=== PATIENT | male | born 1955 | race Caucasian/White ===

== ENCOUNTER 2016-07-17 12:50 | Inpatient (IN) | payer MEDICARE, SELFPAY ==
--- NOTE | ~2016-07-17 | MR134 ---
[facility] A Service of [facility] & [facility] RADIOLOGY TEXT RESULTS PATIENT: ROSE ORTA LOCATION: [facility] 326-01 : 56 UNIT #: [id number] AGE: [address]: Nery Garcia MD SEX: M ORDER DR: [id number] [facility] [address] [place], [place] [address] [id number] I MR#: [id number] Acc #: [id number] NAME: ROSE ORTA : 1955 SEX: M STUDY DATE/TIME: 07/19/2016 17:17 UNIT: [address] ROOM: [facility] STUDY DESCRIPTION: MR MRA Neck Wo Contrast Attending Physician: Nery Garcia M.D. Ordering Physician: Guanakito Miranda M.D. Primary Care Physician: Nery Garcia M.D. MRI CENTER REPORT This report is preliminary unless electronic signature is present. EXAM MRI neck HISTORY 07/10/2016 past hit head on a grandfather clock, hurt right knee (replaced), whole body sore 6 weeks. No more dizzy spells. No history cancer. Dizziness, syncope, many problems. TECHNIQUE Two-dimensional uhtl-et-gvlsac imaging performed through the cervical carotid and vertebral arteries. The patient then underwent contrast-enhanced MRA of the neck with intravenous administration of 18 mL gadolinium based contrast material. Please see dedicated MRA and MRI brain for discussion of intracranial findings. FINDINGS On this examination, the visualized superior mediastinum is grossly unremarkable. Examination was not tailored for assessment of nonvascular cervical soft tissues. No gross suspicious soft tissue asymmetry is seen and there is no enhancing cervical soft tissue mass lesion. Examination was not tailored for assessment of the cervical spine. Bottom Scrubber images suggest potentially significant posterior disc osteophyte complexes at the C3-C4, C6-C7 levels. Correlate clinically and if felt warranted consider assessment with dedicated cervical spine MRI or CT. The visualized aortic arch on the post-gadolinium imaging appears of normal caliber. The great vessel origins are patent with a combined origin of the innominate artery and left common carotid artery. The bilateral subclavian arteries are patent. The bilateral vertebral arteries are patent. On the contrast-enhanced MRA, there is probably mild to moderate disease at the origin of the right vertebral artery. Some of the appearance could be artifactual. Best further evaluated with CT angiography or standard catheter angiography. Thereafter the right [facility] A Service of [facility] RADIOLOGY TEXT RESULTS PATIENT: ROSE ORTA LOCATION: [facility] 326-01 : 57 UNIT #: [id number] AGE: [address]: Nery Garcia MD SEX: M ORDER DR: vertebral artery appears patent throughout its course. The left vertebral artery is dominant. Both vertebral arteries contribute to the basilar artery. Diminutive P1 arterial segments bilaterally with relatively prominent posterior communicating arteries suggested bilaterally probably within the spectrum of persistent origin. See MRA brain. The bilateral common carotid arteries, cervical internal and external carotid arteries are patent without evidence of hemodynamically significant luminal narrowing using NASCET criteria. The petrous and cavernous carotid segments appear grossly patent. Please see MRA brain for a better assessment of the intracranial carotid arteries. IMPRESSION 1. See the complete dictation above for full details. The bilateral cervical carotid arterial systems appear patent with no evidence of hemodynamically significant luminal narrowing in the bilateral cervical internal carotid arteries using NASCET criteria. 2. The bilateral cervical vertebral arteries are patent. There may be moderate luminal narrowing at the origin of the right vertebral artery. This is presumed atherosclerotic in nature. It may in part be artifactual. If clinically warranted, it is best further evaluated with CT angiography or standard catheter angiography. 3. The left vertebral artery is dominant. Both vertebral arteries contribute to the basilar artery. Relatively small caliber bilateral P1 arterial segments with bilateral posterior communicating arteries probably within spectrum of persistent origins bilateral posterior cerebral arteries. Please see MRA brain for better delineation of intracranial arterial anatomy. 4. This examination was not tailored for assessment of the cervical spine. On the supervisor printing and stamping images, there are findings suggesting potentially significant though relatively small posterior disc osteophyte complexes at the C3-C4 and C5-C6 levels. Correlate clinically and if warranted consider assessment of cervical spine with dedicated cervical spine MRI or CT. Dictated by... Eitan Moss M.D. THIS IS AN ELECTRONICALLY VERIFIED REPORT Eitan Moss M.D. at 07/21/2016 4:25 PM JSK/to TD: 07/20/2016 13:09 JOB #: [id number] MRI CENTER REPORT COPY
--- NOTE | ~2016-07-17 | CR229 ---
[facility] A Service of [facility] & [facility] RADIOLOGY TEXT RESULTS PATIENT: ROSE ORTA LOCATION: [facility] 326-01 : 57 UNIT #: [id number] AGE: [address]: Nery Garcia MD SEX: M ORDER DR: [id number] [facility] [address] [place], [place] [address] [id number] I MR#: [id number] Acc #: [id number] NAME: ROSE ORTA : 1955 SEX: M STUDY DATE/TIME: 07/18/2016 9:34 UNIT: [address] ROOM: [facility] STUDY DESCRIPTION: CR Shoulder Min 2 View Lt Attending Physician: Nery Garcia M.D. Ordering Physician: Physician Non-Staff Primary Care Physician: Nery Garcia M.D. MEDICAL IMAGING REPORT This report is preliminary unless electronic signature is present EXAM Left shoulder, 3 views, 07/18/2016. HISTORY Left shoulder pain for 3 days, superior aspect of shoulder, hurts to move shoulder. No known injury. FINDINGS 3 views of the left shoulder demonstrate no fracture. There is degenerative change with some osteophytic spurring along the inferior aspect of the glenoid. The left acromioclavicular joint is intact. There is no soft tissue abnormality. IMPRESSION Minimal degenerative change with some osteophytic spurring along the inferior aspect of the glenoid. Otherwise, negative left shoulder. Dictated by... Jesus Cardoza M.D. THIS IS AN ELECTRONICALLY VERIFIED REPORT Jesus Cardoza M.D. at 07/18/2016 4:58 PM PAOLA/ra TD: 07/18/2016 16:04 JOB #: [id number] MEDICAL IMAGING REPORT COPY
--- NOTE | ~2016-07-17 | CO ---
Unit #: [id number] #: [id number] Patient: ROSE ORTA [id number] [address] [place], [place] [address] [id number] I MR#: [id number] NAME: ROSE ORTA ROOM: 326 Age: 61 Sex: M Admission Date: 07/17/2016 : 1955 Attending Physician: Nery Garcia M.D. Primary Care Physician: Nery Garcia M.D. Consultation Date: 07/18/2016 CONSULTATION REPORT REASON FOR CONSULTATION Lower urinary tract symptoms. HISTORY OF PRESENT ILLNESS This pleasant 61-year-old man was admitted for syncope and his multiple complaints include some prostatism mentioned by his . He also has a limited history of stone disease and total erectile dysfunction for 5 years. He had syncope and has a prosthetic mechanical mitral valve, on chronic anticoagulation. He has had increasing left shoulder and back pain. He has also been progressively weak over several months. He has a frozen shoulder and has been seen by Orthopedics with rheumatic workup under way. I am seeing him in the CT area with the study not yet processed. He went to a urologist 18 months ago because of a small kidney stone, which he eventually passed. At that time, he was put on tamsulosin, which he continued to take as it did help his voiding symptoms, which are limited to nocturia 2 to 3 times nightly and mild intermittent frequency, urgency and decreased stream. He has no history of gross hematuria or urinary tract infections and is unaware of any PSA testing. PAST MEDICAL HISTORY Again includes 1. Valvular heart disease, mitral valve replacement, chronic anticoagulation. 2. Left shoulder pain. 3. History of paroxysmal atrial fibrillation. 4. Hypertension. 5. Dyslipidemia. 6. Diabetes. 7. History of subacute bacterial endocarditis. 8. Leukocytosis. PAST SURGICAL HISTORY Multiple orthopedic including shoulder, back and knee in addition to mitral valve replacement, cholecystectomy and appendectomy. MEDICATIONS Admission medications, in-house is receiving metoprolol, tamsulosin 0.4 mg daily, 81 mg aspirin, potassium, Zestril, gabapentin, Lexapro, digoxin and Pepcid. ALLERGIES Unit #: [id number] #: [id number] Patient: ROSE ORTA None known. FAMILY HISTORY Negative for prostate cancer. SOCIAL HISTORY Never smoker. REVIEW OF SYSTEMS Positive as above including multiple somatic pains, weakness, urologic symptoms listed. Negative for shortness of air, dyspnea, headache, fever, chills, nausea, vomiting, diarrhea, or abdominal pain. DIAGNOSTIC STUDIES LABORATORY RESULTS: Include BUN 14, creatinine 0.9, hemoglobin 13. IMPRESSION The patient has mild prostatism, on alpha kailey therapy. He is happy to continue as is and certainly could increase the dose if he worsens. I did discuss the alternative of finasteride if tamsulosin is thought problematic in any way by Cardiology at this point. Regarding his erectile dysfunction, he is inclined to follow up with me for options as he has failed all oral therapies in the past. History of stones. I note that his 3-phase CT of liver just done while not dictated shows no kidney stones or hydronephrosis. PLAN He will simply continue on his same dose of tamsulosin unless problematic with Cardiology. We will check PSA and urinalysis. We will see him Thursday, but if he is discharged, he will follow up with me outpatient for the above and his erectile dysfunction. Thank you Cameron for the consultation. Dictated by... Leonel Palacios M.D. NELSON/karl TD: 07/19/2016 02:51 JOB #: [id number] CC: Cameron Tejeda M.D. CONSULTATION REPORT X Leonel Palacios MD CONSULTATION REPORT
--- NOTE | ~2016-07-17 | CO ---
Unit #: [id number] #: [id number] Patient: ROSE PAZ [id number] [address] [place], [place] [address] [id number] I MR#: [id number] NAME: ROSE PAZ ROOM: 326 Age: 61 Sex: M Admission Date: 07/17/2016 : 1955 Attending Physician: Nery Garcia M.D. Primary Care Physician: Nery Garcia M.D. Consultation Date: 07/18/2016 CONSULTATION REPORT CHIEF COMPLAINT Left shoulder pain. HISTORY OF PRESENT ILLNESS Mr. Paz is a 61-year-old gentleman, who has been admitted for what sounds to be a syncopal episode and dizziness. We have been asked to evaluate the patient for left shoulder pain. He reports a 4 to 6-week history of essentially what sounds to be a migratory type polyarthralgia and myalgias. 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 However, he stopped his Lipitor and his symptoms now persist. This previously was primarily in his right shoulder and right thumb. He saw an unknown orthopedic surgeon, who provided him with an injection in both, which seemed to alleviate his symptoms. However, the symptoms are now migrated to his left shoulder. He states, however, they are not particular related just to his left shoulder, but across his entire proximal shoulder girdle, upper back, and even into his hips. He has aching pain in his legs at times as well. He has a general feeling of malaise. He reports a 20 pound unintentional weight loss throughout this time. He denies any known history of rheumatologic condition. He does state he has a history to tick exposure a year ago and did have a brother with a tick-borne illness and believes he had a Lyme disease. He states that he has had no fevers, chills, night sweats, or similar constitutional symptoms other than the weight loss. PAST MEDICAL HISTORY 1. Paroxysmal atrial fibrillation and valvular heart disease, on chronic anticoagulation. 2. Hypertension. 3. Hyperlipidemia. 4. Diabetes mellitus. 5. History of leukocytosis. 6. History of subacute bacterial endocarditis. PAST SURGICAL HISTORY 1. Right total knee replacement. 2. Cholecystectomy. 3. Unspecified right shoulder surgery. 4. Appendectomy. 5. Multiple lumbar spine surgeries, the exact nature which is unknown. HOME MEDICATIONS Unit #: [id number] #: [id number] Patient: ROSE PAZ Home medication list is not available. There is some discrepancy in the medical record of the actual home medications. Hospital medications include Lopressor, Flomax, aspirin 81 mg, potassium supplement 20 mEq, lisinopril, Neurontin, Lexapro, digoxin, and Pepcid. ALLERGIES No known drug allergies. SOCIAL HISTORY The patient denies tobacco, alcohol, or illicit drug use. He lives with family. FAMILY HISTORY Lyme disease in his brother. Otherwise noncontributory to current illness. REVIEW OF SYSTEMS Ten systems are reviewed and negative except as noted in the HPI with regard to arthralgias and weight loss. He has some occipital headaches. He denies vision related issues or scalp tenderness. PHYSICAL EXAMINATION GENERAL APPEARANCE: Age-appropriate healthy-appearing 61-year-old gentleman, examined supine on hospital bed. He is in some discomfort with general movement and mobility in the bed. PSYCHIATRIC: Awake, alert, and oriented to person, place, time, situation with normal range of mood and affect. The patient has reported memory loss, it is not evident in general discussion with him today. CARDIAC: Regular rate and rhythm. PULMONARY: No increased work of breathing, symmetric chest rise. No audible expiratory wheeze. ABDOMEN: Nondistended. VASCULAR: His bilateral hands are warm and well perfused with palpable radial pulse. NEUROLOGIC: He has intact motor and sensory function in axillary, median, ulnar, radial nerves in the bilateral upper extremities. SKIN: Overlying skin is unremarkable without any cutaneous rashes, ulcers, or lesions noted. LYMPHATICS: No lymphedema or lymphadenopathy is noted in the bilateral upper extremities. NECK: No JVD. No lymphadenopathy. MUSCULOSKELETAL: His left shoulder is examined. He has essentially no active forward elevation, is unable to lift the arm off the bed secondary to pain. He tolerates passive forward elevation of 120 degrees. He is able to hold the arm independently in this position, but with pain. He tolerates external rotation to approximately 70 degrees, both actively and passively. Strength is globally decreased secondary to pain. No focal tenderness over the left shoulder. DIAGNOSTIC STUDIES LABORATORY RESULTS: White blood cell count is elevated at 13. Hemoglobin is 13.4, platelet count is 272. ESR, SEGUN, and rheumatoid factor are pending. INR is 1.7. IMAGING STUDIES: No radiographs available for review. IMPRESSION Unit #: [id number] #: [id number] Patient: ROSE PAZ This is a 61-year-old gentleman with left shoulder pain with a history of weight loss and what sounds to be a general malaise and multiple arthralgias and myalgias. PLAN I suspect this represents more of a systemic rheumatologic type illness as opposed to a focal musculoskeletal problem. Differential diagnosis at this point, would likely include polymyalgia rheumatica as well as even a tick-borne illness. We will follow up his current laboratory studies as well as ensure that an ESR has been obtained. We will obtain some plain film radiographs of his left shoulder, but again I think this could represent a polymyalgia rheumatica or similar illness. We would defer to the primary team in terms of any further workup with a Lyme titer at this point. We will continue to follow his symptoms and may consider an injection of left shoulder for symptomatic relief if he continues to have focal left shoulder pain. Thank you for the consult. Dictated by... Jesus Miller M.D. Brandy/karl TD: 07/18/2016 21:43 JOB #: [id number] CONSULTATION REPORT X Jesus Miller MD CONSULTATION REPORT
--- NOTE | ~2016-07-17 | MR122 ---
[facility] A Service of [facility] RADIOLOGY TEXT RESULTS PATIENT: ROSE ORTA LOCATION: [facility] : 56 UNIT #: [id number] AGE: [address]: Nery Garcia MD SEX: M ORDER DR: [id number] [facility] [address] [place], [place] [address] [id number] I MR#: [id number] Acc #: [id number] NAME: ROSE ORTA : 1955 SEX: M STUDY DATE/TIME: 07/19/2016 17:09 UNIT: A PCU ROOM: [address] [place] [address] DESCRIPTION: MR MRA Head Wo Contrast Attending Physician: Nery Garcia M.D. Ordering Physician: Guanakito Miranda M.D. Primary Care Physician: Nery Garcia M.D. MRI CENTER REPORT This report is preliminary unless electronic signature is present. EXAM MR angiogram brain without contrast HISTORY Dizzy and syncope yesterday TECHNIQUE MR angiogram of the brain was performed without contrast FINDINGS The intracranial internal carotid arteries are widely patent. Dominant left intracranial vertebral artery with hypoplastic right vertebral artery. The basilar artery is widely patent. Patent bilateral posterior communicating arteries. The anterior cerebral, middle cerebral and posterior cerebral arteries are patent with no focal vessel occlusion or high-grade stenosis. No aneurysm or vascular malformation is identified. IMPRESSION 1. Normal intracranial MR angiogram. 2. No major vessel stenosis or occlusion. 3. Patent bilateral posterior communicating arteries and relatively hypoplastic right intracranial vertebral artery are noted. Dictated by... Moe Fitzgerald M.D. THIS IS AN ELECTRONICALLY VERIFIED REPORT Moe Fitzgerald M.D. at 07/20/2016 1:58 PM DFL/to TD: 07/20/2016 13:38 JOB #: [id number] [facility] A Service of [facility] RADIOLOGY TEXT RESULTS PATIENT: ROSE ORTA LOCATION: [facility] 326 : 56 UNIT #: [id number] AGE: [address]: Nery Garcia MD SEX: M ORDER DR: MRI CENTER REPORT COPY
--- NOTE | ~2016-07-17 | CO ---
Unit #: [id number] #: [id number] Patient: ROSE ORTA [id number] [facility]. [place], [place] [address] [id number] I MR#: [id number] NAME: ROSE ORTA ROOM: 326 Age: 61 Sex: M Admission Date: 07/17/2016 : 1955 Attending Physician: Nery Garcia M.D. Primary Care Physician: Nery Garcia M.D. Consultation Date: 07/17/2016 CONSULTATION REPORT PRIMARY CARE PHYSICIAN Dr. Garcia. REASON FOR CONSULTATION Syncope. HISTORY OF PRESENT ILLNESS This is a 61-year-old white male, who is known to Dr. Florez, who has a history of paroxysmal atrial fibrillation and mechanical mitral valve replacement, where he is on anticoagulation with Coumadin. He is known to have hypertension, hyperlipidemia, diabetes, and history of supraventricular tachycardia. The patient is admitted, because of syncopal episode. He is a poor historian and most information has been obtained from his , who is at bedside. According to the , the patient had a syncopal episode with brief loss of consciousness last week. He said he became dizzy and lightheaded prior to the event. His says he has fallen at least 4 times in the last few months. He reports muscle aches, spasms, and generalized body pain. His said he is sensitive to touch. He is not eating or drinking well. He has difficulty walking, because of weakness. His noted him to have memory loss and forgetfulness for the past year, but has worsened in the past few months. He has alternating constipation and diarrhea. Both shoulders are painful bilaterally, where he is unable to raise his arms. He went to the emergency room on 07/01/2016 and was told to discontinue Lipitor and naproxen. His says his blood pressure has been low at home. Primary care physician decrease his home dose of lisinopril. PAST MEDICAL HISTORY 1. 2D echocardiogram on 03/10/2016 showed an ejection fraction of questionable 45% to 50% with mild aortic regurgitation, mild mitral regurgitation, and mild tricuspid regurgitation. Mechanical mitral valve with peak gradient of 9 mmHg, mean gradient of 4. 2. Cardiac catheterization on 02/09/2014 showed normal coronaries. There was [id number] mitral regurgitation. An ejection fraction of 45%. Pulmonary artery pressure is 39/20 with mean of 26 mmHg. 3. Mechanical mitral valve replacement with Maze procedure and ligation of the left atrial appendage on 03/17/[address] Muhammad at [facility]. 4. Paroxysmal atrial fibrillation, on anticoagulation with Coumadin. 5. Hypertension. 6. Hyperlipidemia. 7. Supraventricular tachycardia. Unit #: [id number] #: [id number] Patient: ROSE ORTA 8. Diabetes mellitus, type 2. 9. Obstructive sleep apnea. 10. Lumbar and cervical disk disease. 11. Nonsmoker. PAST SURGICAL HISTORY 1. Cholecystectomy. 2. Multiple back surgeries. 3. Right knee replacement. 4. Right shoulder surgery x3. 5. Appendectomy. 6. Mitral valve replacement. SOCIAL HISTORY The patient is disabled and . There is no history of illicit drug or alcohol use. He is a lifelong nonsmoker. FAMILY HISTORY Mother had coronary artery disease with history of multiple stents. She also had valve replacement. Has a younger brother, who at age 53 from probable myocardial infarction. ALLERGIES No known drug allergies. HOME MEDICATIONS Lopressor 25 mg q.h.s., Flomax q.h.s., Coumadin 5 mg q.h.s., aspirin 81 mg daily, melatonin 3 mg q.h.s., tramadol 50 mg q.a.m. and 100 mg q.p.m., Glucophage 100 mg b.i.d., potassium 198 mg b.i.d., lisinopril 2.5 mg daily, gabapentin 300 mg t.i.d., vitamin B complex one tablet daily, Lexapro 10 mg daily, digoxin 250 mcg daily, Sinemet 100 mg b.i.d. REVIEW OF SYSTEMS A 10-point review of systems is negative except for details as stated in the HPI. PHYSICAL EXAMINATION VITAL SIGNS: Blood pressure 123/66, heart rate 89, temperature 97.8. GENERAL: This is a 61-year-old well-developed white male, who is in no acute distress. NEUROLOGIC: He is awake and alert, but noted for forgetfulness. Has generalized pain. NECK: Trachea is midline. No thyromegaly or lymphadenopathy. No jugular venous distention. HEART: S1 and S2. Heart sounds are normal. Mitral valve clicks noted. Regular rate and rhythm. LUNGS: Clear to auscultation without rales, rhonchi, or wheezes. ABDOMEN: Soft with tenderness generalized. Noted for hepatomegaly. EXTREMITIES: Without leg edema. SKIN: Warm and dry. DIAGNOSTIC STUDIES LABORATORY RESULTS: Hemoglobin 13.4, hematocrit 39.6, platelet count 272, white count 13.0. Sodium 130, potassium 4.5, BUN 19, creatinine 1.4, glucose 199. Troponin less than 0.03. CK of 43. Pro-time 21.7. INR 2.0. CARDIOVASCULAR STUDIES: EKG shows sinus rhythm, rate of 82 beats per minute with premature ventricular complex. Old inferior wall myocardial Unit #: [id number] #: [id number] Patient: ROSE ORTA infarction. IMPRESSION 1. Syncope secondary to orthostatic hypotension. 2. Bilateral frozen shoulder. 3. Weight loss, malignancy versus connective tissue disease. 4. Hepatomegaly and left upper quadrant tenderness, questionable splenomegaly. 5. Mechanical mitral valve. 6. Premature ventricular complexes. 7. Questionable early dementia. 8. History of paroxysmal atrial fibrillation, currently in normal sinus rhythm. 9. Normal coronaries per cardiac catheterization in 2013. 10. Hypertension. 11. Hyperlipidemia. 12. Diabetes mellitus, type 2. 13. Left ventricular systolic function of questionable 45% to 50%. PLAN 1. Cardiology was consulted for syncope. The patient's syncope is secondary to postural hypotension. Continue IV fluids. 2. Switch to heparin until studies are completed. The patient may need a colonoscopy. Colon malignancy can have symptomatic symptoms. 3. Obtain blood cultures. 4. Stool for Clostridium difficile will be obtained. 5. We will ask Dr. Mayorga to see the patient for possible colonoscopy, because of weight loss. 6. Obtain CT of the abdomen and pelvis, because of liver enlargement. 7. Obtain rheumatoid factor, SEGUN, and sedimentation rate. 8. We will ask Dr. Harley and Dr. Palacios to see the patient for BPH. 9. Pain management. Dictated by... Samir Lance A.P.R.N. for Paula Gomez/karl TD: 07/18/2016 20:04 JOB #: [id number] CONSULTATION REPORT X Samir Lance APRN CONSULTATION REPORT
--- NOTE | ~2016-07-17 | HP ---
Unit #: [id number] #: [id number] Patient: ROSE PAZ [id number] [address] [address] [id number] [place] MR#: [id number] NAME: ROSE PAZ ROOM: [facility] Age: 61 Sex: M Admission Date: 07/17/2016 : 1955 Attending Physician: Nery Garcia M.D. Primary Care Physician: Nery Garcia M.D. HISTORY AND PHYSICAL ADDENDUM Home medication list including the allergies on Mr. Paz's H and P were dictated by mistake wrongly. I do not have the patient's home meds in front of me. This will be clarified with the pharmacy and patient will be restarted accordingly. Please disregard previously dictated home meds on this patient in my H and P. Dictated by Kristian Cunningham M.D. OC/cf TD: 07/17/2016 22:08 JOB #: [id number] HISTORY AND PHYSICAL X Kristian Cunningham MD HISTORY AND PHYSICAL
--- NOTE | ~2016-07-17 | MR18 ---
[facility] A Service of [facility] RADIOLOGY TEXT RESULTS PATIENT: ROSE ORTA LOCATION: [facility] 326-01 : [birth year] UNIT #: [id number] AGE: [address]: Nery Garcia MD SEX: M ORDER DR: [id number] [facility] [address] [facility]. [place], [place] [address] [id number] I MR#: [id number] Acc #: [id number] NAME: ROSE ORTA : 1955 SEX: M STUDY DATE/TIME: 07/19/2016 15:55 UNIT: A [facility] ROOM: [facility] STUDY DESCRIPTION: MR Brain Wo Contrast Attending Physician: Nery Garcia M.D. Ordering Physician: Guanakito Miranda M.D. Primary Care Physician: Nery Garcia M.D. MRI CENTER REPORT This report is preliminary unless electronic signature is present. EXAM MRI brain without contrast HISTORY Dizzy and syncope 1 week ago. FINDINGS MRI brain was performed without contrast. There is no recent ischemia or infarct. Minimal chronic ischemic changes in the deep white matter bilaterally. No intracranial mass or edema. No midline shift or ventricular dilatation or extraaxial fluid collection. 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 IMPRESSION 1. No acute findings. No recent ischemia or infarct. 2. 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 3. Minimal chronic ischemic changes in the deep white matter bilaterally. Dictated by... Moe Fitzgerald M.D. THIS IS AN ELECTRONICALLY VERIFIED REPORT Moe Fitzgerald M.D. at 07/20/2016 1:58 PM DFL/to TD: 07/20/2016 12:26 JOB #: [id number] MRI CENTER REPORT COPY
--- NOTE | ~2016-07-17 | EE ---
Unit #: [id number] #: [id number] Patient: ROSE ORTA [id number] [address] [address] [id number] I MR#: [id number] NAME: ROSE ORTA : 1955 SEX: M STUDY DATE/TIME: 07/21/2016 UNIT: C3A PCU ROOM: [facility] STUDY DESCRIPTION: Attending Physician: Nery Garcia M.D. Referring Physician: Guanakito Miranda M.D. Primary Care Physician: Nery Garcia M.D. NEURODIAGNOSTICS REPORT EXAM EEG. REASON FOR THE STUDY Syncope. EEG DESCRIPTION This is an inpatient, digitally recorded, multimontage adult EEG with leads placed according to the International 10/20 System. Hyperventilation and photic stimulation were attempted. With the patient fully aroused, there is 8.5 to 9 Hz posterior dominant alpha rhythm which is symmetric and attenuates with eyes opening. The patient did become drowsy and later on some stage 2 sleep was seen. Hyperventilation was attempted but I did not see any significant changes. Photic stimulation was attempted in an intermittent stepwise pattern up to the flash frequency of 30 Hz but I did not see any driving, asymmetry, or paroxysmal activity. No clinical events were seen. There seemed to be an artifact at T6. IMPRESSION This is an essentially a normal adult awake and asleep EEG. EEG like this does not rule out epilepsy. Clinical correlation is recommended. Dictated by... Paula Toledo TD: 07/22/2016 11:36 JOB #: [id number] CC: Nery Garcia M.D. Unit #: [id number] #: [id number] Patient: ROSE ORTA NEURODIAGNOSTICS REPORT X Guanakito Miranda MD NEURODIAGNOSTICS REPORT
--- NOTE | ~2016-07-17 | DS ---
Unit #: [id number] #: [id number] Patient: ROSE ORTA [id number] [address] [address] [id number] I MR#: [id number] NAME: ROSE ORTA ROOM: [facility] Age: 61 Sex: M Admission Date: 07/17/2016 : 1955 Discharge Date: 07/21/2016 Attending Physician: Nery Garica M.D. Primary Care Physician: Nery Garcia M.D. DISCHARGE SUMMARY FINAL DIAGNOSES 1. Syncope. 2. Multiple nonspecific symptoms. 3. Polymyalgia and polyarthralgia, possible polymyalgia rheumatica. 4. Mechanical mitral valve. 5. Paroxysmal atrial fibrillation. 6. Normal coronary arteries. 7. Left ventricular ejection fraction of 25% to 30%. 8. Hypertension. 9. Neurology workup so far is negative. Possible autonomic diabetic neuropathy. 10. Hyperlipidemia. 11. Supraventricular tachycardia. 12. Obstructive sleep apnea. 13. Diabetes mellitus type 2. 14. Lumbar and cervical disc disease. 15. Nonsmoker. DISCHARGE MEDICATIONS 1. Vitamin B-Complex daily. 2. Potassium 20 mEq twice daily. 3. Percocet 7.5/325 at 1 tablet q.6 p.r.n. 4. Aspirin 81 mg daily. 5. Pepcid 20 mg daily. 6. Levemir 10 units subcutaneous daily. 7. Lisinopril 2.5 mg daily. 8. Lopressor 25 mg twice daily. 9. Digoxin 0.125 mg daily. 10. Lexapro 10 mg daily. 11. Lyrica 75 mg twice daily. 12. Neurontin 300 mg 3 times daily. 13. Coumadin 5 mg daily. 14. Tylenol 650 q.6 p.r.n. 15. Flomax 0.8 mg daily. CONSULTATIONS 1. Dr. Florez from cardiology services. 2. Dr. Palacios from urology services. 3. Dr. Dominguez Mayorga from GI services. 4. Dr. Guanakito Miranda from neurology services. DIAGNOSTIC STUDIES LABORATORY: Glucose 180. PT-INR is 25.6 and 2.4. BMP shows sodium of 134, potassium 4.2, chloride 101, BUN 14, and creatinine 0.9. CBC shows Unit #: [id number] #: [id number] Patient: ROSE ORTA WBC 11, hemoglobin 13.3, hematocrit 39.8, and platelet count of 261,000. Hemoccult in stool is negative. Blood cultures were negative. One set was positive, possible skin contaminant. Vitamin B12 is 358. Folate more than 23.6. Hemoglobin A1c 7.8. C-reactive protein 4.3. Rheumatoid factor less than 20. PSA 0.63. IMAGING: Ultrasound of carotids showed mild atherosclerosis of the carotid arteries. CT scan of the abdomen and pelvis was done that showed hepatomegaly up to 21.3 cm decreased in 23.7 cm from May 02, 2015. No evidence of cirrhosis. Mild nodular prostate gland enlargement is seen. MRI of the brain shows no acute finding. No recent ischemia or infarct. Some chronic infarction is present. HOSPITAL COURSE Mr. Orta is a 61-year-old male who looks older than his age. He was admitted because of a syncopal episode, dizziness, not able to ambulate, and multiple nonspecific symptoms of polymyalgia and polyarthralgia. Patient was admitted to telemetry unit. Dr. Tejeda was consulted. No further cardiac workup. There was a possibility of orthostatic hypotension and possibility of diabetic autonomic neuropathy. Patient has had a significant weight loss, although there could be a possibility of connective tissue disease. All the workup done during hospitalization has been negative so far. Per Dr. Mayorga, it does not seem like any gastroenterology issues at this time. He may need a colonoscopy once he is somewhat stable. Dr. Miranda was consulted from Neurology point of view. Neuro workup has been negative so far. As per Dr. Miranda, there is a possibility of autonomic diabetic neuropathy. Patient has been started on Lyrica. Patient is being discharged to a rehab facility because patient's is not able to take care of him. PHYSICAL EXAMINATION VITAL SIGNS: Blood pressure 139/81, respiratory rate 17, pulse 82, and temperature 98.2. CHEST: Fair air entry. CARDIOVASCULAR: Mechanical valve. ABDOMEN: Soft. EXTREMITIES: Negative edema. DISCHARGE INSTRUCTIONS 1. Patient is being discharged to rehab facility in stable condition. 2. PT-INR to be done daily. 3. PT/OT at rehab. 4. Medications as per medication reconciliation. 5. Rheumatology appointment as an outpatient for possibility of polymyalgia rheumatica. 6. Follow with Dr. Tejeda as scheduled. No planned cardiac workup at this time. 7. Patient has been advised to follow up with me in the office after discharge from rehab. During hospitalization I have discussed with patient and patient's at length about the plan of care. They do verbalize understanding. Dictated by... Unit #: [id number] #: [id number] Patient: ROSE ORTA M.D. KN/am TD: 07/21/2016 18:22 JOB #: [id number] DISCHARGE SUMMARY X Nery Garcia MD X DISCHARGE SUMMARY
--- NOTE | ~2016-07-17 | HP ---
Unit #: [id number] #: [id number] Patient: ROSE ORTA [id number] [address] [address] [id number] I MR#: [id number] NAME: ROSE ORTA ROOM: 326 Age: 61 Sex: M Admission Date: 07/17/2016 : 1955 Attending Physician: Nery Garcia M.D. Primary Care Physician: Nery Garcia M.D. HISTORY AND PHYSICAL ADMISSION DIAGNOSES 1. Left shoulder pain. 2. History of valvular heart disease, status post mitral valve replacement on chronic anticoagulation. 3. History of paroxysmal atrial fibrillation. 4. Hypertension. 5. Dyslipidemia. 6. Diabetes. 7. Leukocytosis. 8. History of subacute bacterial endocarditis. HISTORY OF PRESENT ILLNESS Mr. Orta is a 61-year-old gentleman, patient of Dr. Garcia, with extensive past medical history including diabetes, hypertension, dyslipidemia, paroxysmal atrial fibrillation, and history of SVT along with osteoarthritis and mitral valve prolapse with history of subacute bacterial endocarditis, status post mitral valve replacement with the mechanical valve on chronic anticoagulation, who was a direct admit from Dr. Garcia's office secondary to increasing left shoulder pain along with back pain. The patient states that initially he was evaluated in the ER about 07/01/2016 with generalized body aches and he was told not to take Lipitor anymore which he discontinued taking. However, his pain got worse, now with the very limited range of motion in the left shoulder and went to see Dr. Garcia and was directly admitted. REVIEW OF SYSTEMS He denies any active chest pain, denies any shortness of air, dyspnea. Denies any headache or dizziness. Denies any fever or chills, nausea or vomiting, diarrhea or abdominal pain. Twelve-point review of systems on this patient is basically negative except as above. PAST MEDICAL HISTORY Significant for: 1. Paroxysmal atrial fibrillation. 2. Valvular heart disease with mechanical valve replacement of the mitral valve. 3. History of hypertension. 4. Dyslipidemia. 5. Diabetes type 2. 6. SVT. 7. Osteoarthritis. Unit #: [id number] #: [id number] Patient: ROSE ORTA PAST SURGICAL HISTORY Significant for: 1. Right knee replacement. 2. Cholecystectomy. 3. Back surgery x6. 4. Right shoulder surgery x3. 5. Appendectomy. HOME MEDICATIONS Include: 1. Xanax 0.5 mg t.i.d. 2. Wellbutrin 150 mg daily. 3. Omeprazole 40 mg daily. 4. Pravastatin 40 mg b.i.d. 5. Restasis daily. 6. Symbicort two puffs inhaled b.i.d. 7. Cymbalta 30 mg daily. 8. Amitriptyline 150 mg daily. 9. Glucophage 1000 mg p.o. daily. 10. Seroquel 100 mg b.i.d. 11. Lyrica 75 mg b.i.d. I think we are also missing Coumadin which will be clarified with the pharmacy and patient will be restarted accordingly. ALLERGIES 1. Sumatriptan. 2. Latex. SOCIAL HISTORY No current history of tobacco, alcohol, or illicit drugs. FAMILY HISTORY Unremarkable. PHYSICAL EXAMINATION VITAL SIGNS: BP 123/66, heart rate 89, respirations 20, temperature 97.8. GENERAL: The patient is a 61-year-old gentleman in no acute distress. HEENT: Head is atraumatic. Pupils equal, round, reactive to light and accommodation. Extraocular muscles are intact. Oropharynx is clear. NECK: Supple. No mass, no JVD, no bruits. LUNGS: Diminished at the bases but generally clear. HEART: S1, S2. No murmurs. ABDOMEN: Soft, nontender, nondistended. LOWER EXTREMITIES: Without any cyanosis, clubbing, or edema. NEUROLOGIC: Unremarkable without any focal deficits except for severely limited range of motion in the left shoulder secondary to tenderness. Good muscle strength in all four extremities; otherwise, maybe 4/5 on the left secondary to shoulder pain. No facial asymmetry. Normal speech. Uvula midline. Alert and oriented x3. Answering questions appropriately. DIAGNOSTIC STUDIES LABORATORY: Chemistry significant for BUN 19, creatinine 1.4, blood glucose 129. PT/INR 21.7 and 2.0. White count 13,000, hemoglobin 13.4, hematocrit 39.6. ASSESSMENT AND PLAN 1. Left shoulder pain along with back pain. This is most likely related Unit #: [id number] #: [id number] Patient: ROSE ORTA to his osteoarthritis. Cardiology consult was also asked by Dr. Garcia since the patient does have a history of paroxysmal atrial fibrillation and valvular heart disease. Will get serial cardiac enzymes. Dr. Tejeda has already seen the patient. Follow up on Cardiology plan. Will most likely need some type of imaging studies, either CT or MRI for the shoulder, and will ask Orthopedic Surgery also to be on board. 2. History of valvular heart disease, status post mitral valve regurgitation secondary to vegetation and mitral valve prolapse. Continue anticoagulation. Currently INR at 2.0. Will discuss with Dr. Tejeda. Maybe we will put him on some IV heparin until INR greater than 2.5. 3. History of paroxysmal atrial fibrillation. 4. Diabetes. Cover with sliding scale. Hold metformin. 5. Dyslipidemia on statin. 6. Hypertension, currently stable. 7. Leukocytosis. Will check procalcitonin level. The patient does have a history of subacute bacterial endocarditis. Will monitor CBC closely. 8. GI and DVT prophylaxis. Will start him on some Pepcid and continue anticoagulation. Dictated by Paula Perdomo/bisi TD: 07/17/2016 20:53 JOB #: [id number] HISTORY AND PHYSICAL X Kristian Cunningham MD HISTORY AND PHYSICAL
--- NOTE | ~2016-07-17 | CO ---
Unit #: [id number] #: [id number] Patient: ROSE ORTA [id number] [facility] [address] [facility]. [place], [place] [address] [id number] MR#: [id number] NAME: ROSE ORTA ROOM: 326 Age: 61 Sex: M Admission Date: 07/17/2016 : 1955 Attending Physician: Nery Garcia M.D. Primary Care Physician: Nery Garcia M.D. Consultation Date: 07/19/2016 CONSULTATION REPORT PRIMARY CARE PHYSICIAN Nery Garcia M.D. REASON FOR CONSULTATION 1. Syncope. 2. Confusion. 3. Dizziness. PATIENT IDENTIFICATION This is a 61-year-old right-handed white male, who was evaluated in room 326 at [facility]. SOURCE OF INFORMATION The patient and his and evaluation done by admitting team. PROBLEM LIST 1. Paroxysmal atrial fibrillation. 2. Valvular heart disease with mechanical valve replacement of mitral valve. 3. History of hypertension. 4. Dyslipidemia. 5. Diabetes type 2. 6. SVT. 7. Osteoarthritis. 8. Right knee replacement. 9. Cholecystectomy. 10. Back surgery x6. 11. Right shoulder surgery x3. 12. Appendectomy. HISTORY OF PRESENT ILLNESS This is a 61-year-old gentleman, who actually was admitted for different reasons, but he has had some problems lately. He reports that he has dizziness and syncopal episodes almost all of them when he gets up too quickly from any sitting or laying down position. Thursday before he came in, he got up and he felt a little bit dizzy or lightheaded, which is usual for him and then kept on walking across the living room, and the next thing he knew he was on the floor. His was in the kitchen, did not see him following, but came immediately to check on him. At that time, he was awake, but he was lying down. He has significant back problem and pain issues, and kept on laying there for a few seconds. Nobody witnessed generalized seizure kind event. No loss of bowel or bladder control. Unit #: [id number] #: [id number] Patient: ROSE ORTA He has done this a few times. He says that he may have been down for 1 or 2 seconds, but he also does not remember the falling episode and he was falling against the grandfather clock and sort of broken and he does not recall any of that. He does not have any staring episodes or myoclonic jerks or other unexplained loss of consciousness. They are all related to particular situation when he gets up quickly. He does have significant medical issues. He is on Neurontin because he has had some sort of neurapraxic injury and may be complex regional pain syndrome or nerve damage after multiple surgeries. He has had endocarditis. He has had staph infection. No recent change in medication known to me. PAST MEDICAL HISTORY As discussed above. PAST SURGICAL HISTORY As discussed above. ALLERGIES Sumatriptan and latex. FAMILY HISTORY No seizures, stroke, or MEDICATION TECHNICIAN issues. MEDICATIONS At home; Lopressor, Flomax, Coumadin 5 mg p.o. every evening, aspirin 81 mg, melatonin, tramadol 50 mg in the morning and 100 mg in the evening, Glucophage, potassium, lisinopril, gabapentin 300 mg p.o. t.i.d., Super B-complex, Lexapro, Digoxin, Cinnamon. SOCIAL HISTORY He is . Lives with his . He is a retired EMT. He denies any tobacco, alcohol, or drug use. REVIEW OF SYSTEMS Mostly as discussed in history of present illness. CONSTITUTIONAL: He denies any weight issues, sleep problems, fever, chills, rigor, or sweats. HEENT: No headaches. No double vision, earache, runny nose, or sore throat. CARDIOVASCULAR: No chest pain, clubbing, cyanosis, orthopnea, or palpitation. As discussed. PULMONARY: No shortness of air, cough, or expectoration. GASTROINTESTINAL: No nausea, vomiting, diarrhea, or constipation. GENITOURINARY: No genitourinary symptoms. EXTREMITIES: He has had left shoulder pain and right knee pain. He has had prior right-sided surgery done. BACK: He has had chronic back issues. PSYCHIATRIC: Otherwise unremarkable. NEUROLOGIC: Syncope and dizziness. He is diabetic and he is in Coumadin. No other hematologic, dermatologic, or endocrine issues known to me. Unit #: [id number] #: [id number] Patient: ROSE ORTA PHYSICAL EXAMINATION VITAL SIGNS: Temperature 98.4, pulse is 95, respirations 16, blood pressure 148/88, O2 saturations were 96% to 100%. He has 3 positional blood pressure and pulse on one occasion, his blood pressures is fell from 143/87 laying down to 139/75 sitting and 105/70 standing. Heart rate went from 75 to 80 and on another occasion, it went from 89 to 101. NEUROLOGICAL: The patient is awake. He is alert. He is oriented. He can name and he can follow commands. No right/left confusion. No finger agnosia. He is slow on responses, but appropriate and as expected. Cranial nerve examination demonstrates full galeas of vision to confrontation. Eye movements are conjugate. I did not see any ptosis. I did not see any nystagmus. Extraocular movements are intact. Sensation on the face and scalp are normal. Strength of muscles of facial expression normal. Hearing seemed to be intact bilaterally. Tongue was midline. Uvula was midline. Palate elevation was normal. Head turning and shoulder shrugs were unremarkable. Motor examination demonstrated normal bulk, tone. Strength was 5-/5 and there is significant limitation because of his pain. Sensory examination intact for soft touch and pain sensation. No extinction was seen. Romberg could not be evaluated. Gait exam deferred. I could not get any reflexes. Toes are equivocal. Coordination; [id number]-[id number] was unremarkable. I could not check it otherwise. DIAGNOSTIC STUDIES LABORATORY RESULTS: Random glucose was 150 to 199. TSH was 2.55. INR was 2 when he came in, it was 1.7 right now. C-reactive protein was elevated to 4.3. His PTT is 49.9, it was as high as 56.6. White count is 10.5. H and H of 13.1 and 38.9, platelet count was 277. His urinalysis really did not show anything major. IMAGING STUDIES: No brain imaging studies. IMPRESSION 1. This is a very interesting 61-year-old gentleman, who actually has had a few syncopal episodes. This could be autonomic neuropathy. This could be positional. He is also concerned about, as a matter of fact, his is, that he is having some memory problems and also he has dizziness. So, I definitely want to do some lab work, please see my orders. 2. I definitely want to do brain imaging study and MRAs and EEG if he is here. I really do not think these are epileptic events. 3. He has taken tramadol which can sometime decreases seizure threshold though, but nobody would really witnessed the seizure. I will put him on Lyrica, which is better suited for his chronic pain type scenario anyway and based on our findings, we will decide future course of action and if he is otherwise stable, then all these tests can be done as outpatient because his symptoms going on for quite sometime. I will discuss with the primary team. Nothing else to change at present and again the symptoms are nonspecific, dizziness, and near syncopal and syncopal episode which could be positional and memory problems when he is taking so many Unit #: [id number] #: [id number] Patient: ROSE ORTA medications also. So, he may not be able to find anything, but if possible, would need workup and followup so appropriately. Dictated by... Paula Toledo/karl TD: 07/21/2016 05:16 JOB #: [id number] CONSULTATION REPORT X Guanakito Miranda MD X CONSULTATION REPORT
--- NOTE | ~2016-07-17 | US37 ---
[facility] A Service of [facility] & [facility] RADIOLOGY TEXT RESULTS PATIENT: ROSE ORTA LOCATION: C3A 326-01 : 56 UNIT #: [id number] AGE: [address]: Nery Garcia MD SEX: M ORDER DR: [id number] [facility] [address] [facility]. [place], [place] [address] [id number] I MR#: [id number] Acc #: [id number] NAME: ROSE ORTA : 1955 SEX: M STUDY DATE/TIME: 07/17/2016 20:08 UNIT: A U ROOM: [facility] STUDY DESCRIPTION: US Carotid W/Doppler Bilateral Attending Physician: Nery Garcia M.D. Ordering Physician: Marcelino Boo M.D. Primary Care Physician: Nery Garcia M.D. MEDICAL IMAGING REPORT This report is preliminary unless electronic signature is present EXAM Bilateral carotid duplex date of examination 07/17/2016 HISTORY Syncope. FINDINGS There is patent flow seen throughout the right common carotid, internal carotid, and external carotid arteries. There is some mild, irregular appearing atherosclerosis noted in the right carotid bifurcation. The right common carotid peak velocity is 113 cm/sec. The right internal carotid artery peak systolic over end diastolic velocities are: Proximal 86/27 cm/sec, mid 79/22 cm/sec, distal 93/25 cm/sec. The right external carotid artery peak velocity is 101 cm/sec and vertebral artery 44 cm/sec. The right ICA/CCA ratio is 0.82. There is patent flow seen throughout the left common carotid, internal carotid, and external carotid arteries. There is some mild atherosclerosis noted at the left carotid bifurcation. The left common carotid artery has a peak velocity of 150 cm/sec. The left internal carotid artery has a peak systolic over end diastolic velocities of: Proximal 83/20 cm/sec, mid 106/30 cm/sec, distal 66/24 cm/sec. The left external carotid artery peak velocity is 124 cm/sec, and vertebral artery 56 cm/sec. The left ICA/CCA ratio is 0.71. IMPRESSION 1. There is mild atherosclerosis of the carotid arteries, bilaterally, which is not hemodynamically significant by duplex criteria (less than 50%). 2. Vertebral flow is antegrade bilaterally. [facility] A Service of [facility] RADIOLOGY TEXT RESULTS PATIENT: ROSE ORTA LOCATION: C3A 326-01 : 57 UNIT #: [id number] AGE: [address]: Nery Garcia MD SEX: M ORDER DR: Dictated by... Trae Parekh M.D. THIS IS AN ELECTRONICALLY VERIFIED REPORT Trae Parekh M.D. at 07/22/2016 8:11 AM RALPH/jean marie TD: 07/18/2016 23:28 JOB #: [id number] MEDICAL IMAGING REPORT COPY
--- NOTE | ~2016-07-17 | CO ---
Unit #: [id number] #: [id number] Patient: ROSE ORTA [id number] [address] [place], [place] [address] [id number] I MR#: [id number] NAME: ROSE ORTA ROOM: 326 Age: 61 Sex: M Admission Date: 07/17/2016 : 1955 Attending Physician: Nery Garcia M.D. Primary Care Physician: Nery Garcia M.D. Consultation Date: 07/18/2016 CONSULTATION REPORT PRIMARY CARE PHYSICIAN Nery Garcia M.D. REASON FOR CONSULTATION Possible colonoscopy. HISTORY OF PRESENTING ILLNESS Mr. Orta is a 61-year-old gentleman, who was admitted with generalized body aches. He says one month ago he started with generalized body aches. His arms hurt, the mostly shoulder stays all day. He has been now having difficulty with walking also. He is unable to take a shower or eat on his own and his has to help him. The weakness in the upper arm seems to be progressive and he has a lot of stiffness. He does not have any heartburn or trouble swallowing. He denies nausea or vomiting. He denies any abdominal pain. He denies any change in bowel movements. His bowels are mildly chronically constipated. No blood in the stool or vomiting or black stools. He had a colonoscopy done a few years ago with Dr. Torres, apparently had colon polyps at this time. PAST MEDICAL HISTORY Significant for mitral valve replacement on chronic anticoagulation, history of paroxysmal atrial fibrillation, hypertension, hyperlipidemia, diabetes mellitus. He is status post right knee replacement, cholecystectomy as well as shoulder surgery several times. He has had 6 back surgeries. SOCIAL HISTORY Denies alcohol. Denies any drug abuse. FAMILY HISTORY Noncontributory. Denies any history of colon cancer. ALLERGIES None. MEDICATIONS Reviewed. Includes chronic Coumadin therapy. REVIEW OF SYSTEMS Complete 10-point review of system was done. He has lost more than 30 pounds. He says he does not have an appetite. He has no swallowing problems or nausea or vomiting. Review of all other systems is as Unit #: [id number] #: [id number] Patient: ROSE ORTA mentioned above. PHYSICAL EXAMINATION VITAL SIGNS: Stable. Temperature 97.9, pulse 75, respirations 18, and blood pressure of 164/87. HEENT: Pupils equal and reactive. Sclerae anicteric. Oral mucosa moist. NECK: No JVD. No lymphadenopathy. MUSCULOSKELETAL: Shoulder stiffness. There is significant weakness in both upper arm, left arm is particularly weak. No clear numbness. Lower legs strengths are better. ABDOMEN: Soft, nontender, and nondistended. No organomegaly or ascites clinically. EXTREMITIES: Without clubbing, cyanosis, or edema. DIAGNOSTIC STUDIES LABORATORY RESULTS: CRP of 4.3, sedimentation rate of 48. Hemoglobin 13, normal white count, platelet count. Normal LFTs. Normal renal function. IMAGING STUDIES: CT of abdomen shows hepatomegaly, appears chronic. No focal lesions. Pancreatic duct was dilated to 5 mm, which seems stable from a CT scan in 2014. No acute illness was seen. ASSESSMENT AND PLAN The patient's symptoms suggest possible polymyalgia versus cervical spine disease. Neuro consult has been called. Await further recommendations. Possible MRI of the neck to be considered. At this time, there is no clear GI pathology or symptoms. Colonoscopy was as per Dr. Tejeda for possibly occult malignancy. We will consider when the patient is stable, another workup is completed. Thank you, Dr. Tejeda for this interesting consult. We will follow along. Dictated by... Paula Armendariz/karl TD: 07/19/2016 20:52 JOB #: [id number] CONSULTATION REPORT X Dominguez Mayorga MD X CONSULTATION REPORT
--- NOTE | ~2016-07-17 | EKG ---
PATIENT: ROSE ORTA UNIT #: [id number] Ventricular Rate: 82 BPM Atrial Rate: 82 BPM P-R Interval: 170 ms QRS Duration: 90 ms Q-T Interval: 334 ms QTC Calculation(Bezet): 390 ms P Towner: 62 degrees Calculated R Towner: -14 degrees Calculated T Towner: 15 degrees Diagnosis Line: Sinus rhythm with occasional Premature ventricular Diagnosis Line: complexes Diagnosis Line: Inferior infarct (cited on or before 01-JUL-2016) Diagnosis Line: Abnormal ECG Diagnosis Line: When compared with ECG of 01-JUL-2016 19:16, Diagnosis Line: Premature ventricular complexes are now Present Diagnosis Line: Premature atrial complexes are no longer Present Diagnosis Line: Confirmed by NICK TRUONG MD ([id number]) on 07/19/2016 Diagnosis Line: 5:51:44 PM INTERPRETING MD: ALEXI PAEZ
--- NOTE | ~2016-07-17 | CT3 ---
[facility] A Service of [facility] & [facility] RADIOLOGY TEXT RESULTS PATIENT: ROSE ORTA LOCATION: [facility] 326-01 : 56 UNIT #: [id number] AGE: [address]: Nery Garcia MD SEX: M ORDER DR: [id number] [facility] [address] [facility]. [place], [place] [address] [id number] I MR#: [id number] Acc #: [id number] NAME: ROSE ORTA : 1955 SEX: M STUDY DATE/TIME: 07/18/2016 10:12 UNIT: C3A PCU ROOM: [facility] STUDY DESCRIPTION: CT Abd and Pelv WWo Cont Attending Physician: Nery Garcia M.D. Ordering Physician: Cameron Tejeda M.D. Primary Care Physician: Neyr Garcia M.D. MEDICAL IMAGING REPORT This report is preliminary unless electronic signature is present EXAM CT abdomen and pelvis without and with contrast (hepatic imaging protocol) DATE OF EXAMINATION 07/18/2016 HISTORY Liver enlargement. Diffuse abdominal pain for 1 month. Diarrhea for several years. COMPARISON CT abdomen and pelvis with contrast 05/02/2015. PROCEDURE Precontrast and dynamic postcontrast imaging was obtained through the abdomen. Postcontrast imaging was extended through the pelvis. Sagittal and coronal reformatted images were obtained. This CT exam was performed with one or more of the following radiation dose reduction techniques: automatic exposure control, adjustment of mA and/or kV according to patient size, and iterative reconstruction. FINDINGS CT ABDOMEN: The liver is mildly enlarged measuring up to 21.3 cm cranial caudally. On the previous 2014 examination it measured up to 23.7 cm cranial caudally. Spleen size is normal measuring up to 11.4 cm. The liver does not appear cirrhotic or steatotic. No focal or suspicious liver lesions are identified. Cholecystectomy. Benign granulomatous changes within the spleen. Mild pancreatic ductal dilation up to 5 mm is not thought to be significantly change from 05/02/2015. No peripancreatic inflammatory changes are identified. Adrenals and kidneys are normal. Unopacified bowel unremarkable. No ascites. No free fluid. STS. [facility] A Service of [facility] & [facility] RADIOLOGY TEXT RESULTS PATIENT: ROSE ORTA LOCATION: A 326-01 : 57 UNIT #: [id number] AGE: [address]: Nery Garcia MD SEX: M ORDER DR: CT PELVIS: Mild prostatic enlargement with nodular protrusion into the urinary bladder base. Rectum is normal. No pelvic adenopathy or free fluid is identified. Advanced degenerative disc and endplate changes are present L5-S1 with disc spacer device in place located eccentrically to the left of midline. Approximately 4 mm grade 1 anterolisthesis L4 upon L5 thought to be related to facet arthropathy at that level. IMPRESSION 1. Hepatomegaly up to 21.3 cm, decreased in 23.7 cm on 05/02/2015. No evidence of cirrhosis or focal liver abnormality. 2. Normal spleen. 3. Mild nodular prostate gland enlargement protruding into the urinary bladder base. 4. Degenerative endplate changes at L5-S1. 5. Mild prominence of the pancreatic duct up to 5 mm, unchanged from previous exam. No obstructing abnormality is identified. There is no evidence of active or acute pancreatitis. 6. Cholecystectomy. Dictated by... Cleopatra Phan M.D. THIS IS AN ELECTRONICALLY VERIFIED REPORT Cleopatra Phan M.D. at 07/20/2016 7:02 PM Alecia TD: 07/18/2016 17:40 JOB #: [id number] MEDICAL IMAGING REPORT COPY
[~2016-07-17 12:50] MED LIST: ASPIRIN81 M1 PO; BACLOFEN20 MG PO; BUSPAR15 M3 PO; CARDURA1 MG PO; CARVEDILOL3.125 MG PO; CINNAMON PO; COUMADIN4 MG PO; COUMADIN6 MG PO; DILTIAZEM 24HR120 M1 PO; FISH OIL 1,0001 CAP PO; FLOMAX0.4 M1 PO; GABAPENTIN800 MG PO; GLIPIZIDE5 MG/BOTT1 PO; GRALISE600 MG PO; HYDROCODON-ACE1 EAC1 PO; HYDROCODON-ACE1 EAC9 PO; LANOXIN PO; LEXAPRO5 MG PO; LIPITOR20 MG PO; LISINOPRIL10 MG PO; LOPID600 MG PO; LOPRESSOR PO; LOVENOX SUBQ; METFORMIN PO; METOPROLOL TAR25 MG PO; MOBIC PO; NEURONTIN PO; OXYCODON HCL-AP1 TA2 PO; POTASSIUM99 M2 PO; PRAVASTATIN SOD40 MG PO; ST. JOSEPH ASPI81 M3 PO; TRADJENTA5 MG PO; ULTRAM PO
[2016-07-17] MEDS ORDERED: TRAMADOL HCL50 M1 PO ×2 (16:27→16:28)
[2016-07-17] MEDS ORDERED: METFORMIN PO (16:29)
[2016-07-17] MEDS ORDERED: LISINOPRIL2.5 MG PO (16:30)
[2016-07-17] MEDS ORDERED: POTASSIUM99 M1 PO (16:30)
[2016-07-17] MEDS ORDERED: LOPRESSOR PO (16:31)
[2016-07-17] MEDS ORDERED: FLOMAX0.4 M1 (16:32)
[2016-07-17] MEDS ORDERED: MELATONIN3 M4 PO (16:33)
[2016-07-17] MEDS ORDERED: COUMADIN5 MG PO (16:33)
[2016-07-17] MEDS ORDERED: ASPIRIN81 MG PO (16:33)
[2016-07-17] MEDS ORDERED: GABAPENTIN300 M2 PO (16:34)
[2016-07-17] MEDS ORDERED: SUPER B COMPLEX1 CAP (16:34)
[2016-07-17] MEDS ORDERED: LEXAPRO5 MG PO (16:35)
[2016-07-17] MEDS ORDERED: DIGOX250 MCG PO (16:36)
[2016-07-17] MEDS ORDERED: CINNAMON PO (16:37)
[2016-07-17 17:10] LABS: HEMATOCRIT 39.6 % (38.0-50.0); HEMOGLOBIN 13.4 gm/dL (13.0-16.0); MEAN CELL VOLUME 83.6 FL (83-96); MEAN CORPUSCULAR HEMOGLOBIN 28.3 PG (28-34); MEAN CORPUSCULAR HGB CONC 33.9 g/dL (30-36); MEAN PLATELET VOLUME 7.8 FL (6.5-11.5); RED BLOOD COUNT 4.74 X10e (3.90-5.60)
[2016-07-17 17:37] LABS: PROTHROMBIN TIME (PATIENT) 21.7 SECONDS (9.6-11.5)
[2016-07-17 17:42] LABS: ALBUMIN SERUM 3.1 g/dL (3.5-5.0); BILIRUBIN,TOTAL 0.8 mg/dL (0.2-2.0); BUN/CREATININE RATIO 13.57; CALCIUM SERUM 8.1 mg/dL (8.4-10.2); CREATININE SERUM 1.4 mg/dL (0.6-1.4); GLOM FILT RATE Estimated 54.9 mL/min (>60); POTASSIUM 4.5 mmol/L (3.5-5.1); PROTEIN TOTAL SERUM 6.1 g/dL (6.0-8.3)
[2016-07-18 05:50] LABS: INR 1.7; PROTHROMBIN TIME (PATIENT) 18.5 SECONDS (9.6-11.5)
[2016-07-18 08:21] LABS: BASOPHIL# 0.1 X10e3 (0-0.3); BASOPHIL% 0.8 % (0-2.5); EOSINOPHIL# 0.3 X10e3 (0-0.7); EOSINOPHIL% 2.3 % (0.0-7.0); HEMATOCRIT 38.6 % (38.0-50.0); HEMOGLOBIN 13.1 gm/dL (13.0-16.0); LYMPHOCYTE# 2.2 X10e3 (1.0-3.5); LYMPHOCYTE% 19.9 % (17.0-45.0); MEAN CELL VOLUME 82.6 FL (83-96); MEAN CORPUSCULAR HEMOGLOBIN 28.1 PG (28-34); MEAN PLATELET VOLUME 7.7 FL (6.5-11.5); MONOCYTE# 1.1 X10e3 (0-1.0); MONOCYTE% 10.1 % (3.0-12.0); NEUTROPHIL# 7.3 X10e3 (1.5-7.1); NEUTROPHIL% 66.9 % (40-75); PLATELET COUNT 260 X10e3 (140-420); RED BLOOD COUNT 4.67 X10e (3.90-5.60); RED CELL DISTRIBUTION WIDTH 13.9 % (11.0-15.5); WHITE BLOOD COUNT 10.9 X10e3 (4.0-10.5)
[2016-07-18 08:22] LABS: DIFF IND NO
[2016-07-18 09:21] LABS: PROCALCITONIN <0.05 NG/ML
[2016-07-18 09:39] LABS: BLOOD UREA NITROGEN 14 mg/dL (9-23); BUN/CREATININE RATIO 15.55; CALCIUM SERUM 8.3 mg/dL (8.4-10.2); CARBON DIOXIDE 25 mmol/L (22-31); CHLORIDE 105 mmol/L (100-111); CREATININE SERUM 0.9 mg/dL (0.6-1.4); GLOM FILT RATE Estimated ABOVE60 mL/min (>60); GLUCOSE FASTING 150 mg/dL (70-110); SODIUM 134 mmol/L (135-145)
[2016-07-19 03:45] LABS: HEMATOCRIT 38.9 % (38.0-50.0); HEMOGLOBIN 13.1 gm/dL (13.0-16.0); MEAN CELL VOLUME 83.7 FL (83-96); MEAN CORPUSCULAR HEMOGLOBIN 28.2 PG (28-34); MEAN CORPUSCULAR HGB CONC 33.7 g/dL (30-36); MEAN PLATELET VOLUME 7.5 FL (6.5-11.5); RED BLOOD COUNT 4.64 X10e (3.90-5.60); WHITE BLOOD COUNT 10.5 X10e3 (4.0-10.5)
[2016-07-19 04:03] LABS: INR 1.7; PARTIAL THROMBOPLASTIN TIME 49.4 SECONDS (23.5-31.3); PROTHROMBIN TIME (PATIENT) 18.8 SECONDS (9.6-11.5)
[2016-07-19 04:07] LABS: BLOOD UREA NITROGEN 14 mg/dL (9-23); BUN/CREATININE RATIO 12.72; CALCIUM SERUM 8.7 mg/dL (8.4-10.2); CARBON DIOXIDE 27 mmol/L (22-31); CHLORIDE 105 mmol/L (100-111); CREATININE SERUM 1.1 mg/dL (0.6-1.4); GLOM FILT RATE Estimated ABOVE60 mL/min (>60); GLUCOSE FASTING 150 mg/dL (70-110); MAGNESIUM 1.8 mg/dL (1.6-3.0); POTASSIUM 4.6 mmol/L (3.5-5.1); SODIUM 137 mmol/L (135-145)
[2016-07-19 06:21] LABS: URINE SOURCE CLEAN CATCH
[2016-07-19 06:39] LABS: URINE APPEARANCE CLEAR; URINE BILIRUBIN NEG (NEG); URINE BLOOD NEG (NEG); URINE COLOR YELLOW; URINE GLUCOSE NEG (NEG); URINE KETONE NEG (NEG); URINE LEUKOCYTE ESTERASE NEG (NEG); URINE NITRATE NEG (NEG); URINE PH 6.5 (5-8); URINE PROTEIN 2+ (NEG); URINE SPECIFIC GRAVITY 1.017 (1.003-1.035)
[2016-07-19 07:59] LABS: MICRO INDICATED? NO
[2016-07-19 19:44] LABS: FOLATE (FOLIC ACID) >23.6 ng/mL (>5.8)
[2016-07-20 02:29] LABS: INR 2.1; PARTIAL THROMBOPLASTIN TIME 37.6 SECONDS (23.5-31.3); PROTHROMBIN TIME (PATIENT) 22.7 SECONDS (9.6-11.5)
[2016-07-20 03:41] LABS: HEMATOCRIT 37.4 % (38.0-50.0); HEMOGLOBIN 12.5 gm/dL (13.0-16.0); MEAN CELL VOLUME 84.6 FL (83-96); MEAN CORPUSCULAR HEMOGLOBIN 28.3 PG (28-34); MEAN CORPUSCULAR HGB CONC 33.4 g/dL (30-36); MEAN PLATELET VOLUME 7.9 FL (6.5-11.5); RED BLOOD COUNT 4.42 X10e (3.90-5.60); RED CELL DISTRIBUTION WIDTH 14.1 % (11.0-15.5); WHITE BLOOD COUNT 10.2 X10e3 (4.0-10.5)
[2016-07-21 10:13] LABS: BASOPHIL# 0.1 X10e3 (0-0.3); BASOPHIL% 1.1 % (0-2.5); EOSINOPHIL# 0.1 X10e3 (0-0.7); EOSINOPHIL% 1.3 % (0.0-7.0); HEMATOCRIT 39.8 % (38.0-50.0); HEMOGLOBIN 13.3 gm/dL (13.0-16.0); LYMPHOCYTE# 1.6 X10e3 (1.0-3.5); LYMPHOCYTE% 14.2 % (17.0-45.0); MEAN CELL VOLUME 84.5 FL (83-96); MEAN CORPUSCULAR HEMOGLOBIN 28.2 PG (28-34); MEAN CORPUSCULAR HGB CONC 33.4 g/dL (30-36); MEAN PLATELET VOLUME 7.8 FL (6.5-11.5); MONOCYTE% 8.8 % (3.0-12.0); NEUTROPHIL# 8.2 X10e3 (1.5-7.1); NEUTROPHIL% 74.6 % (40-75); PLATELET COUNT 261 X10e3 (140-420); RED BLOOD COUNT 4.71 X10e (3.90-5.60); RED CELL DISTRIBUTION WIDTH 14.1 % (11.0-15.5)
[2016-07-21 10:26] LABS: DIFF IND NO
[2016-07-21 10:34] LABS: BLOOD UREA NITROGEN 14 mg/dL (9-23); BUN/CREATININE RATIO 15.55; CALCIUM SERUM 8.9 mg/dL (8.4-10.2); CARBON DIOXIDE 24 mmol/L (22-31); CHLORIDE 101 mmol/L (100-111); CREATININE SERUM 0.9 mg/dL (0.6-1.4); GLOM FILT RATE Estimated ABOVE60 mL/min (>60); GLUCOSE FASTING 262 mg/dL (70-110); MAGNESIUM 1.5 mg/dL (1.6-3.0); POTASSIUM 4.2 mmol/L (3.5-5.1); SODIUM 134 mmol/L (135-145)
[2016-07-21 12:32] LABS: INR 2.4; PROTHROMBIN TIME (PATIENT) 25.6 SECONDS (9.6-11.5)
[2016-07-22 06:31] LABS: INR 2.6; PROTHROMBIN TIME (PATIENT) 28.6 SECONDS (9.6-11.5)
[2016-07-22 20:31] LABS: ANA SCREEN Negative (Negative)
== END 2016-07-22 13:06 | DRG 312 ==
LOC: CEDOF 12:50 → C3A PCU 15:43
PROVIDERS: Hospitalist; Internal Medicine Cardiovascular Disease; Nurse Practitioner; Physician Assistant Medical; Psychiatry & Neurology Neurology; Urology
PROC: B24BYZZ Ultrasonography of Heart with Aorta using Other Contrast (ICD-10-PCS; principal; 2016-07-18)
PROC: BW21Y0Z Computerized Tomography (CT Scan) of Abdomen and Pelvis using Other Contrast, Unenhanced and Enhanced (ICD-10-PCS; 2016-07-18)
DX: I95.1 Orthostatic hypotension (principal); I42.9 Cardiomyopathy, unspecified; E11.43 Type 2 diabetes mellitus with diabetic autonomic (poly)neuropathy; I47.1 Supraventricular tachycardia; I48.0 Paroxysmal atrial fibrillation; I10 Essential (primary) hypertension; M35.3 Polymyalgia rheumatica; E78.5 Hyperlipidemia, unspecified; G47.33 Obstructive sleep apnea (adult) (pediatric); M51.36 Other intervertebral disc degeneration, lumbar region; M50.30 Other cervical disc degeneration, unspecified cervical region; Z79.82 Long term (current) use of aspirin; Z79.01 Long term (current) use of anticoagulants; Z95.2 Presence of prosthetic heart valve; Z96.651 Presence of right artificial knee joint; M75.02 Adhesive capsulitis of left shoulder; M75.01 Adhesive capsulitis of right shoulder; R16.0 Hepatomegaly, not elsewhere classified; Z91.81 History of falling; Z83.3 Family history of diabetes mellitus; Z88.8 Allergy status to other drugs, medicaments and biological substances; Z91.040 Latex allergy status; M19.012 Primary osteoarthritis, left shoulder; N40.0 Benign prostatic hyperplasia without lower urinary tract symptoms
CPT/HCPCS: 70544; 70547; 70551; 73030; 74178; 80048; 80053; 80162; 81003; 82274; 82308; 82550; 82607; 82746; 82947; 83036; 83735; 84153; 84443; 84484; 85025; 85027; 85610; 85652; 85730; 86038; 86039; 86140; 86430; 87040; 92610; 93005; 93306; 93880; 95816; 97110; 97162; 97166; 97530; 97535; A9577; G8978-GP; G8979-GP; G8987-GO; G8988-GO; J1644; J1815; J3475; Q9967

== ENCOUNTER → 2016-09-17 | Outpatient (CLI) | payer MEDICARE, OTHER ==
[~2016-09-17] MED LIST changes: +ASPIRIN81 MG PO; +COUMADIN5 MG PO; +DIGOX250 MCG PO; +FLOMAX0.4 M1; +GABAPENTIN300 M2 PO; +LISINOPRIL2.5 MG PO; +MELATONIN3 M4 PO; +POTASSIUM99 M1 PO; +SUPER B COMPLEX1 CAP; +TRAMADOL HCL50 M1 PO
--- NOTE | ~2016-09-17 | CR63 ---
[facility] A Service of [facility] & [facility] RADIOLOGY TEXT RESULTS PATIENT: ROSE ORTA LOCATION: [facility] : 57 UNIT #: [id number] AGE: [address]: Nery Garcia MD SEX: M ORDER DR: [id number] [facility] [address] [place], [place] [address] [id number] MR#: [id number] Acc #: [id number] NAME: ROSE ORTA : 1955 SEX: M STUDY DATE/TIME: 09/17/2016 13:12 UNIT: [facility] ROOM: STUDY DESCRIPTION: CR Chest 2 View Attending Physician: Nery Garcia M.D. Referring Physician: Nery Garcia M.D. Ordering Physician: Nery Garcia M.D. Primary Care Physician: Nery Garcia M.D. MEDICAL IMAGING REPORT This report is preliminary unless electronic signature is present EXAM PA and lateral chest 09/17/2016 13:12 HISTORY 61-year-old male cough for 1 week. Diabetes. COMPARISON AP portable chest 03/23/2014. FINDINGS Heart size is within normal limits. Signs of prior valve replacement and presumed left atrial appendage ligation. Surgical changes of the right shoulder. Clear lungs. No pleural effusion or pneumothorax. Mild degenerative spurring in the thoracic spine. IMPRESSION 1. No acute chest findings. 2. Signs of cardiac valve replacement. Dictated by... Cleopatra Phan M.D. THIS IS AN ELECTRONICALLY VERIFIED REPORT Cleopatra Phan M.D. at 09/18/2016 10:01 PM NIKO/darren TD: 09/18/2016 06:10 JOB #: [id number] MEDICAL IMAGING REPORT Page 1 of 1 COPY
== END | disposition home or self-care (01) ==
LOC: CRAD 12:57
DX: J18.9 Pneumonia, unspecified organism (principal)
CPT/HCPCS: 71020